=== PATIENT | female | born 1980 | race Two or more races ===

== ENCOUNTER → 2024-07-03 | Outpatient (CLI) | payer MEDICAID, SELFPAY ==
--- NOTE | 2024-07-03 15:00 | XR_ITS ---
Examination: Breast ultrasound, unilateral, right complete Date and time of exam: July 03, 2024 1452 hours INDICATIONS: Mammogram November 25, 2023 4 mm circumscribed nodule 10:00 position right breast Technique: Real-time david scale ultrasonographic imaging performed right breast including all 4 quadrants as well as nipple retroareolar and axillary region. Findings: 10:00 retroareolar oval circumscribed nodule 6 x 6 mm IMPRESSION: BI-RADS Category 3: Probably benign findings Recommend 1 additional 6 month right breast sonogram follow-up to document stability of 10:00 nodule described above
--- NOTE | 2024-07-03 15:30 | XR_ITS ---
Examination: Diagnostic digital mammography, unilateral, right Computer aided detection 3-D breast Tomosynthesis, unilateral Date and time of exam: July 03, 2024 1540 hrs. Indications: Mammogram September 28, 2023 4 mm focal asymmetry outer right breast CC view Technique: Nonmagnified MLO, CC views of the right breast have been obtained, reconstructed from 3-D Tomosynthesis images. R2 computer aided detection program utilized for evaluation of suspicious masses and/or abnormal calcifications. 3-D Tomosynthesis images obtained. Findings: Scattered areas of fibroglandular density. Benign calcifications. No interval suspicious masses Impression: BI-RADS category 2: Benign findings Return to yearly follow-up mammography Please see the right breast sonogram report today recommending 6 month right breast sonogram follow-up
== END | disposition home or self-care (01) ==
LOC: CDIM 14:44
PROVIDERS: Referring Provider Physician Assistant Medical; Visit Provider Physician Assistant Medical
DX: R92.321 Mammographic fibroglandular density, right breast (principal); R92.1 Mammographic calcification found on diagnostic imaging of breast; N63.11 Unspecified lump in the right breast, upper outer quadrant
CPT/HCPCS: 76641; 77061; 77065; G0279

== ENCOUNTER 2024-08-14 09:55 | Outpatient (RCR) | payer MEDICAID, SELFPAY ==
--- NOTE | 2024-08-14 10:09 | PTNOTE_ITS ---
PT OP Initial Eval Patient Information Outpatient Physical Therapy Treatment Date: 08/14/24 Visit Reasons: RT knee pain Medical Diagnosis: M25.561 Treatment Dx #1: R knee pain Start of Care: 08/14/24 Date of Onset: 2 yrs ago Smoking Status Smoking Status: Never smoker Initial Assessment Subjective: Pt is 43 yr old albanian speaking female who c/o R knee pain x2 yrs. Increased pain with walking longer distances, kneeling and stairs. She can do HH chores but with pain after a few minutes. PMH: allergies, obesity Imaging: with provider medial compartment narrowing according to notes Pt goal; less knee pain Objective: R knee AROM: ? Flexion: 110 deg ? Extension: full ? PROM: 115 deg flexion ? SLR: 55 deg ? Strength: R quads 4-/5, hamstrings 4-/5 ? Mildly Antalgic gait pattern with decreased stance time on R Special testing: ? McMurrays testing: positive Assessment: Pt presents with R knee rotation sensitivity and positive special testing for meniscus irritation. Pt may benefit from skilled therapy and has fair rehab potential to meet goals. Short Term and [facility] Goals 1. Independent with HEP ? 2. Improved knee flexion ROM to 115 deg ? 3. Improved quad and hamstring strength to 4+/5 ? 4. Improved ambulatory tolerance to community distances with symmetrical ? gait pattern. Treatment Plan 1. Manual therapy ? 2. Therex ? 3. Modalities as indicated, tens, MHP, ice Frequency and Duration: 1-2x a week for 4 visits then reassess Certification Dates: 08/14/24 to 11/11/24 Procedure Charges OP PT Eval Mod Complex 30 minutes: Yes
== END 2024-08-17 23:59 | disposition home or self-care (01) ==
LOC: CPTX 09:55
PROVIDERS: PCP Physician Assistant Medical; Referring Provider Physician Assistant Medical; Visit Provider Physician Assistant Medical
DX: M25.561 Pain in right knee (principal)
CPT/HCPCS: 97162

== ENCOUNTER 2024-09-12 11:00 | Outpatient (RCR) | payer MEDICAID, SELFPAY ==
--- NOTE | 2024-08-22 11:26 | PT.ODAYNRPT ---
PT Outpatient Daily Note OP Daily Note Outpatient Physical Therapy Treatment Date: 08/22/24 Visit Reasons: RT knee pain Subjective: Pain behind the knee Objective: See F/S for therex P x7' Assessment: Ssx consistent with meniscus tear of R knee Plan: Continue per POC Length of Time (minutes) of Treatment: 30 Minutes Procedure Charges Therapeutic Exercise 30 minutes: Yes
--- NOTE | 2024-08-30 10:47 | PT.ODAYNRPT ---
PT Outpatient Daily Note OP Daily Note Outpatient Physical Therapy Treatment Date: 08/30/24 Visit Reasons: RT knee pain Subjective: Pt reports R knee is doing ok, continues to have pain pointing to the back of the knee. Objective: Please see flow sheet for ther ex list. Assessment: Interventions completed with minimal pain. Plan: Continue with POC. Length of Time (minutes) of Treatment: 30 Minutes Procedure Charges Therapeutic Exercise 30 minutes: Yes
--- NOTE | 2024-09-12 11:31 | PT.ODAYNRPT ---
PT Outpatient Daily Note OP Daily Note Outpatient Physical Therapy Treatment Date: 09/12/24 Visit Reasons: RT knee pain Subjective: Pain behind the knee Objective: See F/S for therex ice x7' Assessment: Ssx consistent with meniscus tear of R knee, pt may benefit from further diagnostic imaging such as MRI Plan: Continue per POC Length of Time (minutes) of Treatment: 30 Minutes Procedure Charges Therapeutic Exercise 30 minutes: Yes
== END 2024-09-17 23:59 | disposition home or self-care (01) ==
LOC: CPTX 11:00
PROVIDERS: PCP Physician Assistant Medical; Referring Provider Physician Assistant Medical; Visit Provider Physician Assistant Medical
DX: M25.561 Pain in right knee (principal)
CPT/HCPCS: 97110

== ENCOUNTER 2024-09-20 15:43 | Outpatient (RCR) | payer MEDICAID, SELFPAY ==
--- NOTE | 2024-09-20 17:18 | PT.ODS1RPT ---
PT OP Progress/Discharge Note Date of Service: 09/20/24 Progress Note/DC Note Progress Note/Discharge Note: DC Note Patient Information Visit Reasons: RIGHT KNEE PAIN Service Continue Service or Discharge: Discharge Discharge Date: 09/20/24 Status Subjective: The R knee feels about the same as before therapy, painful behind the knee. Objective: R knee AROM: Flexion: 110 deg Extension: full Strength: R quads: 3+/5, HS 4-/5 Assessment: Pt has attended 4/4 Rx sessions with limited progress with therapy goals due to continued R knee pain which is consistent with meniscus irritation. Pt hasn't met set goals and would benefit from further diagnostic imaging such as MRI of the R knee. Thank you for your referrals. Plan: D/C with HEP. Procedure Charges Therapeutic Exercise 30 minutes: Yes
== END 2024-10-17 23:59 | disposition home or self-care (01) ==
LOC: CPTX 15:43
PROVIDERS: PCP Physician Assistant Medical; Referring Provider Physician Assistant Medical; Visit Provider Physician Assistant Medical
DX: M25.561 Pain in right knee (principal)
CPT/HCPCS: 97110

== ENCOUNTER 2024-12-10 08:24 | Emergency (ER) | payer MEDICAID, SELFPAY ==
[2024-12-10 08:37] VITALS: BP 146/87; PULSE 90; RESP 18; TEMP 36.6; O2SAT 99
--- NOTE | 2024-12-10 08:44 | XR_ITS ---
Examination: Duplex scan of the lower extremity, unilateral left Date and time of exam: December 10, 2024 1040 hours INDICATIONS: Left leg swelling and pain beginning 2 months ago Technique: Duplex scan of the extremity veins using B-mode/grayscale imaging and Doppler spectral analysis and color flow Attention is directed to internal echogenicity, compression and augmentation involving these veins, color flow assessment, spectral analysis Findings: Major deep venous structures in the extremity demonstrate normal course and caliber. There is no evidence of deep vein thrombosis. Normal color flow and spectral analysis Impression: Negative for DVT..
--- NOTE | 2024-12-10 10:56 | PD.EDANKLE ---
Lower Extremity Injury RME/HPI General Chief Complaint: Ankle/Foot Injury Stated Complaint: SOLES OF FEET HURT UP TO KNEES; SENT BY PCP Time Seen by Provider: 12/10/24 08:32 Arrival date/time: 12/10/24 08:24 44-year-old female presents to the emergency department day for complaints of left lower extremity pain and feels a swollen sensation of the left lower leg for the last couple of months Limitations: no limitations Related Data Home Medications ?Medication ?Instructions ?Recorded ?Confirmed cholecalciferol (vitamin D3) 1,250 1,250 mcg PO QWEEK 12/28/23 12/28/23 mcg (50,000 unit) capsule omega-3 acid ethyl esters 1 gram 1 cap PO TID 12/28/23 12/28/23 capsule (Lovaza) terbinafine HCl 250 mg tablet 250 mg PO QDAY 12/28/23 12/28/23 tirzepatide (weight loss) 2.5 2.5 mg subcut QWEEK 12/28/23 12/28/23 mg/0.5 mL subcutaneous pen injector (Zepbound) Previous Rx's ?Medication ?Instructions ?Recorded ferrous sulfate 325 mg (65 mg 325 mg PO QDAY #30 tabs 03/09/24 iron) tablet cyclobenzaprine 10 mg tablet 10 mg PO TID PRN muscle spasm 10 12/10/24 days #30 tab-caps ibuprofen 800 mg tablet 800 mg PO TID PRN pain #30 tabs 12/10/24 Allergies Allergy/AdvReac Type Severity Reaction Status Date / Time No Known Allergies Allergy Verified 12/10/24 08:30 Review of Systems Review of Systems Systems Reviewed: All systems reviewed, normal except as documented Constitutional Constitutional: Reports system reviewed and no additional complaints, except as documented, Denies fever(s) and Denies headache(s) Eyes Eyes: Reports system reviewed and no additional complaints, except as documented and Denies blurry vision ENT Ears, Nose, Mouth, and Throat: Reports system reviewed and no additional complaints, except as documented, Denies headache(s), Denies nasal congestion and Denies nasal discharge Cardiovascular Cardiovascular: Reports system reviewed and no additional complaints, except as documented, Denies chest pain and Denies dyspnea Respiratory Respiratory: Reports system reviewed and no additional complaints, except as documented, Denies chest congestion, Denies cough and Denies dyspnea Gastrointestinal Gastrointestinal: Reports system reviewed and no additional complaints, except as documented and Denies abdominal pain Musculoskeletal Musculoskeletal: Reports system reviewed and no additional complaints, except as documented, Denies deformity, Denies numbness, Denies stiffness, Denies tingling and Reports other (Leg pain left) Integumentary/Breasts Skin/Breast: Reports system reviewed and no additional complaints, except as documented and Denies rash Neurologic Neurologic: Reports system reviewed and no additional complaints, except as documented, Reports as per HPI, Denies headache(s), Denies numbness and Denies tingling Past Medical History Past Medical History NEUROLOGIC: Negative Neurological Disorders or Seizures CARDIAC: Negative Cardiac Disorders or Congestive Heart Failure RESPIRATORY: Negative Chronic Obstructive Pulmonary Disease (COPD) GASTROINTESTINAL: Positive Gastrointestinal Disorders and Obesity GENITOURINARY: Negative Genitourinary Disorders or Renal Disease REPRODUCTIVE: Positive Previous Pregnancies (5) MUSCULOSKELETAL: Negative Musculoskeletal Disorders ENDOCRINE: Negative Endocrine Disorders, Diabetes Mellitus Type 1 or Diabetes Mellitus Type 2 HEMATOLOGIC: Negative Blood Disorders OTHER HISTORY: Positive Hospitalization (CHILD ); Negative Autoimmune Disease, Down Syndrome, Developmental Delay, Shingles, Falls, Blood Transfusions, Blood Transfusion Reaction, Anesthesia Reactions, Organ Transplant, MRSA, Vancomycin-Resistant Enterococci, Clostridium Difficile or Cancer Family History FAMILY HISTORY: Positive Family Cancer and Family Surgery (PARENTS & SIBLINGS: APPENDECTOMY, PARENTS: KNEE SURGERY, DAD:BACK SURGERY); Negative Family Psychiatric Problems, Family Respiratory Disorders, Family Cardiac Disorders, Family Gastrointestinal Problems or Family Anesthesia Reaction Surgical History SURGICAL: Positive Abdominal Surgery, Tubal Ligation and Section (x1); Negative Cardiac Surgery, Endocrine Surgery, Thyroidectomy, Nephrectomy, Joint Replacement, Neurologic Surgery, Mastectomy, Vasectomy or Organ Transplant Social History SMOKING STATUS: Never smoker ED Exam General Limitations: Present no limitations General appearance: Present alert and in no apparent distress Head Head exam: Present atraumatic Eye Eye exam: Present normal appearance, PERRL and EOMI ENT ENT exam: Present normal exam, normal oropharynx and mucous membranes moist Neck Neck exam: Present normal inspection, full ROM and trachea midline Chest Chest inspection: Present normal inspection and symmetric chest wall rise Respiratory Respiratory exam: Present normal lung sounds bilaterally Cardiovascular Cardiovascular exam: Present regular rate, normal rhythm and normal heart sounds Abdominal Exam Abdominal exam: Present soft and normal bowel sounds Extremities Exam Extremities exam: Present normal inspection, full ROM, tenderness, normal capillary refill and calf tenderness; Absent pedal edema or joint swelling Back Exam Back exam: Present normal inspection and full ROM Neurological Exam Neurological exam: Present alert, oriented X3 and CN II-XII intact Psychiatric Psychiatric exam: Present normal affect and normal mood Skin Skin exam: Present warm, dry, intact and normal color Course Quality Measures none Orders Category Date Time Status US venous doppler LE LT Stat Exams 12/10/24 08:44 Completed Vital Signs Vital signs: Vital Signs Temperature 98 F 12/10/24 08:37 Pulse Rate 90 12/10/24 08:37 Respiratory Rate 18 12/10/24 08:37 Blood Pressure 146/87 H 12/10/24 08:37 Pulse Oximetry (%) 99 12/10/24 08:37 Oxygen Delivery Method Room Air 12/10/24 08:37 O2 saturation 99% room air within minutes 90 Extremity Injury, Lower MDM Narrative MDM Narrative:: 44-year-old female presents to the emergency department day for complaints of left lower extremity pain and feels a swollen sensation of the left lower leg for the last couple of months Clinically patient well-appearing does not appear ill or toxic in no acute distress patient walks with steady gait On exam patient is no bruising no swelling no redness or warmth of the extremity Ultrasound obtained no acute DVT noted Patient discharged home in no distress to follow-up with primary care doctor in the next 24 to 48 hours and for any worsening symptoms to return to the ER immediately Patient data External records reviewed:: [facility] previous records Clinical information provided by:: patient Social determinants that could affect healthcare access:: none Patient has the following chronic illnesses:: See history How is presenting disease/condition affected by chronic disease/condition?: uneffected by Evaluation data The following diagnostics were reviewed and interpreted by me:: radiology exam(s) Lab and/or radiology exams considered but not ordered:: Radiology obtain Interpretation Summary: Reviewed by me Medications / Prescriptions Medications or Prescriptions considered but not ordered:: Given Medication administrations:: Given Consultations Consultation(s) initiated? (list below): No Diagnosis Extremity Injury, Lower Differential Diagnosis: other (Leg pain left) Most likely diagnosis given after review of the tests above:: Leg pain left Admission Indicated Admission indicated?: not indicated Admission Request Was there a request for admission?: No Disposition Plan Disposition Plan: Discharge Discharge Attestation Discharge Attestation: The patient and all family members were given an opportunity to ask questions and understood the discharge instructions. Discharge instructions specifically effects, indications for sooner follow up or return to the emergency department, and the expected course of current diagnosis. Patient condition: Stable Discharge Plan Plan Patient Disposition: HOME (Self Care) Discharge Disposition comment: Stable Prescriptions/Referrals Prescriptions/Med Rec: New cyclobenzaprine 10 mg tablet 10 mg PO TID PRN (Reason: muscle spasm) 10 Days Qty: 30 0RF ibuprofen 800 mg tablet 800 mg PO TID PRN (Reason: pain) Qty: 30 0RF No Action terbinafine HCl 250 mg Tablet 250 mg PO QDAY omega-3 acid ethyl esters [Lovaza] 1 gram Capsule 1 cap PO TID cholecalciferol (vitamin D3) 1,250 mcg (50,000 unit) capsule 1,250 mcg PO QWEEK Patient Comments: TAKE ONE CAPSULE BY MOUTH EVERY WEEK VITAMIN Zepbound 2.5 mg/0.5 mL pen injector 2.5 mg SUBCUT QWEEK Patient Comments: INJECT ONE PEN SUBCUTANEOUSLY ONCE A WEEK ferrous sulfate 325 mg (65 mg iron) tablet 325 mg PO QDAY Qty: 30 0RF Referrals: Jojo Benitez PA-C [Primary Care Provider] - 12/11/24 Problem List Clinical Impression: Left leg pain Patient/Caregiver Discharge Instructions Education Materials: RICE Additional Instructions: Please follow up with your primary care doctor in the next 24-48hrs for any worsening symptoms return here immediately Print Language: Cuban Stand Alone Forms: Violetta Award Info., Patient Portal Info Letter PA/RITA Supervising Physician PA/RITA Supervising Physician: Dr. pierre
== END 2024-12-10 16:02 | disposition home or self-care (01) ==
PROVIDERS: Emergency Provider Family Medicine; PCP Physician Assistant Medical
DX: M79.605 Pain in left leg (principal); M79.89 Other specified soft tissue disorders
CPT/HCPCS: 93971; 99284

== ENCOUNTER 2025-05-13 14:24 | Outpatient (RCR) | payer MEDICAID, SELFPAY ==
--- NOTE | 2025-05-13 14:41 | PT.OIERPT ---
PT OP Initial Eval Patient Information Outpatient Physical Therapy Treatment Date: 05/13/25 Visit Reasons: PAIN IN LEFT KNEE Medical Diagnosis: M25.562 Treatment Dx #1: L knee pain Start of Care: 05/13/25 Date of Onset: 1 yr ago Smoking Status Smoking Status: Never smoker Initial Assessment Subjective: Pt is 44 yr old female who reports L knee pain x1 yr insidious onset. 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 PMH: allergies, obesity Imaging: with provider Pt goal: to get rid of the pain Objective: L knee AROM: ? Flexion: 107 deg ? Extension: full ? Bobo's: positive Valgus stress: minimal gapping <5 mm ? SLR: 55 deg ? Strength: L quads 4-/5 limited by patella compression pain, hamstrings 4/5 ? Antalgic gait pattern with decreased stance time on L Assessment: Pt presents with decreased L knee strength and ROM consistent with meniscus irritation and OA. Pt may benefit from skilled therapy to meet goals and has fair rehab potential. Short Term and Drug Safety Physician Goals 1. Independent with HEP ? 2. Improved knee flexion ROM to 115 deg ? 3. Improved quad and hamstring strength to 4+/5 ? 4. Improved ambulatory tolerance to community distances with symmetrical ? gait pattern. Treatment Plan 1. Manual therapy ? 2. Therex ? 3. Modalities as indicated, moist heat, ice, TENS Frequency and Duration: 1-2x a week for 4 trial visits. If progressing continue up to 12. If not, reassess Certification Dates: 05/13/25 to 08/11/25 Procedure Charges OP PT Eval Mod Complex 30 minutes: Yes
== END 2025-05-19 23:59 | disposition home or self-care (01) ==
LOC: CPTX 14:24
PROVIDERS: PCP Physician Assistant Medical; Referring Provider Physician Assistant Medical; Visit Provider Physician Assistant Medical
DX: M25.562 Pain in left knee (principal)
CPT/HCPCS: 97162

== ENCOUNTER 2025-06-10 10:00 | Outpatient (RCR) | payer MEDICAID, SELFPAY ==
--- NOTE | 2025-05-22 18:13 | PT.ODAYNRPT ---
PT Outpatient Daily Note OP Daily Note Outpatient Physical Therapy Treatment Date: 05/22/25 Visit Reasons: pain in left ankle Subjective: Pain behind the knee Objective: See F/S for therex MHP x7' L knee Assessment: Ssx consistent with meniscus tear of L knee, pt may benefit from further diagnostic imaging such as MRI Plan: Continue per POC Length of Time (minutes) of Treatment: 30 Minutes Procedure Charges Therapeutic Exercise 30 minutes: Yes
--- NOTE | 2025-06-03 18:34 | PT.ODAYNRPT ---
PT Outpatient Daily Note OP Daily Note Outpatient Physical Therapy Treatment Date: 06/03/25 Visit Reasons: pain in left ankle Subjective: Continued pain behind the knee Objective: See F/S for therex MHP x7' L knee Assessment: Ssx consistent with meniscus tear of L knee, pt may benefit from further diagnostic imaging such as MRI Plan: Continue per POC Length of Time (minutes) of Treatment: 30 Minutes Procedure Charges Therapeutic Exercise 30 minutes: Yes
--- NOTE | 2025-06-10 10:42 | PT.ODAYNRPT ---
PT Outpatient Daily Note OP Daily Note Outpatient Physical Therapy Treatment Date: 06/10/25 Visit Reasons: pain in left ankle Subjective: Continued pain behind the knee Objective: See F/S for therex MHP x7' L knee Assessment: Ssx consistent with meniscus tear of L knee, pt may benefit from further diagnostic imaging such as MRI Plan: Continue per POC Length of Time (minutes) of Treatment: 30 Minutes Procedure Charges Therapeutic Exercise 30 minutes: Yes
== END 2025-06-19 23:59 | disposition home or self-care (01) ==
LOC: CPTX 10:00
PROVIDERS: PCP Physician Assistant Medical; Referring Provider Physician Assistant Medical; Visit Provider Physician Assistant Medical
DX: M25.562 Pain in left knee (principal)
CPT/HCPCS: 97110